=== PATIENT | male | born 1955 | race Caucasian/White ===

== ENCOUNTER 2016-09-09 21:37 | Emergency (ER) | payer BC, OTHER ==
[2016-09-09] VITALS (12 sets, daily range): BP systolic 71–150; BP diastolic 45–82; PULSE 63–76; RESP 18–20; TEMP 97.4–97.5; O2SAT 93–98
[~2016-09-09] VITALS: Ht 193 cm; Wt 109.0 kg
[~2016-09-09 21:37] MED LIST: PRED50TA PO; RANI150 PO
[2016-09-09] MEDS ORDERED: SODIUM CHLOR 0.9% 1000 ML INJ 1,000 ML IV SCH (21:49)
--- NOTE | 2016-09-09 21:50 | PD ---
HPI Chief Complaint: Allergic/Adverse Reaction Time Seen by Provider: 21:49 Travel History International Travel<30 days: No Contact w/Intl Traveler<30days: No Traveled to known affect area: No History of Present Illness HPI 60 year-old male presents to the emergency department by private transportation for acute allergic reaction. Patient with urticarial reaction sudden onset around 9 PM without known precipitating factor. Patient's had allergic reactions in the past of unclear etiology. Patient did take Zantac prior to arrival to the emergency department. Patient states that he was working in the yard around 4 PM this evening cleaning foliage/night daniel does not recall any type of insect bite. Subsequently he went to exercise at his gym and then went to visit his father's home. Patient last ate around 5:30 hamburger from [employer]. Patient did take an aspirin around 4 PM after working in the yard. Patient denies any new medications detergents lotions linens chemicals clothing foods or environments. Patient does complain of pruritus and diffuse urticarial rash has sensation of some swelling or itching of the right upper lip but no visible swelling is noted. Patient fells somewhat tight in the throat and slightly short of breath. No near-syncope or syncope. No nausea or vomiting abdominal cramping or diarrhea. Patient denies any chronic medical conditions such as CAD, hypertension, dyslipidemia, diabetes, tobaccoism, or asthma. Pain is 0/10. PFSH Past Medical History Narrative Medical Idiopathic urticaria, psoriasis, toe surgery, no tobacco use, nursing notes reviewed Diminished Hearing: No Social History Alcohol Use: No Tobacco Use: No Substance Use: No Allergies-Medications (Allergen,Severity, Reaction): Coded Allergies: No Known Allergies (Verified , 09/09/16) Reported Meds & Prescriptions Reported Meds & Active Scripts Active Reported Benadryl Allergy (Diphenhydramine HCl) 25 Mg Tab 25 Mg PO Q6H PRN Ranitidine (Ranitidine HCl) 150 Mg Tab 150 Mg PO DAILY PRN Narrative Medication Epi Pen Review of Systems Except as stated in HPI: all other systems reviewed are Neg Physical Exam Narrative GENERAL: Well-developed well-nourished male in obvious discomfort and mild distress with diffuse urticarial rash; triage blood pressure: 71/45 SKIN: Warm and dry. Diffuse urticarial rash. HEAD: Normocephalic. EYES: No scleral icterus. No injection or drainage. ENT: Mucous membranes moist airway is patent, no angioedema noted NECK: Supple, trachea midline. No JVD or lymphadenopathy. CARDIOVASCULAR: Regular rate and rhythm without murmurs, gallops, or rubs. RESPIRATORY: Breath sounds equal bilaterally. No accessory muscle use. GASTROINTESTINAL: Abdomen soft, non-tender, nondistended. MUSCULOSKELETAL: No cyanosis, or edema. BACK: Nontender without obvious deformity. No CVA tenderness. Data Data Last Documented VS Vital Signs Date Time Temp Pulse Resp B/P Pulse Ox O2 Delivery O2 Flow Rate FiO2 09/09/16 23:00 97.5 70 20 120/74 96 Nasal Cannula 1 Orders Basic Metabolic Panel (Bmp) (09/09/16 21:49) Complete Blood Count With Diff (09/09/16 21:49) Ecg Monitoring (09/09/16 21:49) Iv Access Insert/Monitor (09/09/16 21:49) Oximetry (09/09/16 21:49) Diphenhydramine Inj (Benadryl Inj) (09/09/16 22:00) Methylprednisolone So Succ Inj (Solumedr (09/09/16 22:00) Famotidine Inj (Pepcid Inj) (09/09/16 22:00) Sodium Chlor 0.9% 1000 Ml Inj (Ns 1000 M (09/09/16 21:49) Sodium Chloride 0.9% Flush (Ns Flush) (09/09/16 22:00) Epinephrine (1:1000) Inj (Adrenalin (1:1 (09/09/16 22:00) Electrocardiogram (09/09/16 ) Sodium Chlor 0.9% 1000 Ml Inj (Ns 1000 M (09/09/16 22:00) Methylprednisolone So Succ Inj (Solumedr (09/09/16 22:00) Potassium Chloride (Kcl) (09/09/16 22:30) Magnesium (Mg) (09/09/16 21:51) Troponin I (09/09/16 21:51) Labs Laboratory Tests Test 09/09/16 21:51 White Blood Count 8.0 TH/MM3 Red Blood Count 6.09 MIL/MM3 Hemoglobin 17.5 GM/DL Hematocrit 53.3 % Mean Corpuscular Volume 87.6 FL Mean Corpuscular Hemoglobin 28.8 PG Mean Corpuscular Hemoglobin 32.9 % Concent Red Cell Distribution Width 12.8 % Platelet Count 360 TH/MM3 Mean Platelet Volume 7.6 FL Neutrophils (%) (Auto) 55.4 % Lymphocytes (%) (Auto) 37.4 % Monocytes (%) (Auto) 4.2 % Eosinophils (%) (Auto) 2.2 % Basophils (%) (Auto) 0.8 % Neutrophils # (Auto) 4.4 TH/MM3 Lymphocytes # (Auto) 3.0 TH/MM3 Monocytes # (Auto) 0.3 TH/MM3 Eosinophils # (Auto) 0.2 TH/MM3 Basophils # (Auto) 0.1 TH/MM3 CBC Comment DIFF FINAL Differential Comment Sodium Level 145 MEQ/L Potassium Level 3.4 MEQ/L Chloride Level 109 MEQ/L Carbon Dioxide Level 28.5 MEQ/L Anion Gap 8 MEQ/L Blood Urea Nitrogen 22 MG/DL Creatinine 1.10 MG/DL Estimat Glomerular Filtration 69 ML/MIN Rate Random Glucose 131 MG/DL Calcium Level 8.7 MG/DL Magnesium Level 2.4 MG/DL Troponin I LESS THAN 0.02 NG/ML MDM Medical Decision Making Medical Screen Exam Complete: Yes Emergency Medical Condition: Yes Medical Record Reviewed: Yes Interpretation(s) CBC is automated differential: Values in normal range Metabolic panel: Values in normal range except for mild hypokalemia Troponin I: Less than 0.02, not elevated EKG: sinus rhythm no acute ST elevation injury pattern or ectopy noted Differential Diagnosis Acute allergic reaction, idiopathic urticaria, anaphylaxis, angioedema Narrative Course Patient immediately placed on hypoid gear tester IV access obtained specimens collected patient administered epinephrine 1 1000 concentration 0.3 cc IM as well as Benadryl 25 mg IV ( Benadryl 50 mg ordered however patient had artery taken Benadryl 50 mg prior to arrival to the emergency department by mouth) patient administered Solu-Medrol 155 mg IV and Pepcid 40 mg IV (reportedly takes Zantac 150 mg by mouth prior to arrival to the emergency department) @ 23:40 patient is improved after iv fluids, im epinephrine, iv benadryl iv pepcid and oral replacement potassium; EKG sinus rhythm without injury or ischemia or ectopy changes; hypoid gear tester with intermittent PAC's. Urticaria almost completely resolved some mild residual pink erythema at the waistline. No lip tongue or throat swelling lung sounds are clear vital signs are in normal range. Patient reports mild drowsiness associated with receiving IV Benadryl as he states he is frequently drowsy after receiving or taking Benadryl. At 12:35 AM patient desirous of being discharged to home has EpiPen prescription Zantac prescription and Benadryl. Patient is aware of risk benefit of being monitored overnight versus continuing education regimen at home. Patient is desirous of being discharged home appears stable at this time encouraged to continue Benadryl milligrams every 4 hours as well as Zantac 300 mg daily and to carry EpiPen at all times and should he have any recurrent symptoms or any lip tongue or throat symptoms uses EpiPen return to the emergency department patient is also encouraged to complete course of steroid and to follow-up this primary care provider in the a.m. Prior to discharge patient given oral dose of Benadryl as well as prednisone. Diagnosis Primary Impression: Allergic reaction, urticaria Referrals: Adi Hernadez DO 1 day Patient Instructions: General Instructions Additional Instructions: Increase fluid hydration Take Benadryl 25 mg 1-2 tablets every 4-6 hours for rash and itching 5 days Takes Zantac 150 mg 2 tablets daily 5 days Complete course of steroid as prescribed Avoid overheating No work times one day Follow-up with primary care provider in office times one day call office in a.m. Return immediately to the emergency room for any concerns or change in condition Carry EpiPen at all times and administer medication for hives and acute allergic reaction at time of onset of symptoms and proceed to the nearest hospital/emergency department Med/Other Pt SpecificInfo: Prescription(s) given Scripts Ranitidine (Zantac)300 Mg Dak026 Mg PO DAILY 5 Days Ref 0 Prov:Kaylyn Archibald MD 09/10/16 Prednisone 50 Mg Tab50 Mg PO DAILY 4 Days Ref 0 Prov:Kaylyn Archibald MD 09/10/16 Epinephrine Inj (Epipen 2-Gage Inj)0.3 Mg/0.3 Ml Pfpen0.3 Mg IM ONCE PRN ( ALLERGIC REACTION) #1 PACK Ref 2 Prov:Kaylyn Archibald MD 09/10/16 Disposition: 01 DISCHARGE HOME Condition: Stable Kaylyn Archibald MD Sep 09, 2016 21:50
[2016-09-09 22:00] LABS: AUTOMATED NEUTROPHIL # 4.4 TH/MM3 (1.8-7.7); BASOPHIL # 0.1 TH/MM3 (0-0.2); BASOPHIL % 0.8 % (0.0-2.0); EOSINOPHIL # 0.2 TH/MM3 (0-0.4); EOSINOPHIL % 2.2 % (0.0-4.0); HEMATOCRIT 53.3 % (39.0-51.0); HEMO FLAGS DIFF FINAL; LYMPH % 37.4 % (9.0-44.0); MEAN CELL VOLUME 87.6 FL (80.0-100.0); MEAN CORPUSCULAR HEMOGLOBIN 28.8 PG (27.0-34.0); MEAN CORPUSCULAR HGB CONC 32.9 % (32.0-36.0); MONO % 4.2 % (0.0-8.0); NEUT % 55.4 % (16.0-70.0); PLATELET COUNT 360 TH/MM3 (150-450); RED BLOOD COUNT 6.09 MIL/MM3 (4.50-5.90); RED CELL DISTRIBUTION WIDTH 12.8 % (11.6-17.2)
[2016-09-09] MEDS ORDERED: FAMOTIDINE 20 MG/2 ML VIAL IV PUSH ONE (22:00)
[2016-09-09] MEDS ORDERED: methylPREDNISolone SOD SUCC 125 MG/2 ML VIAL IM ONE (22:00)
[2016-09-09] MEDS ORDERED: diphenhydrAMINE HCL 50 MG/ML VIAL IVP ONE (22:00)
[2016-09-09] MEDS ORDERED: methylPREDNISolone SOD SUCC 125 MG/2 ML VIAL IV PUSH ONE (22:00)
[2016-09-09] MEDS ORDERED: SODIUM CHLOR 0.9% 1000 ML INJ 1,000 ML IV ONE (22:00)
[2016-09-09] MEDS ORDERED: SODIUM CHLORIDE 0.9% FLUSH 5 ML FLUSH IVF PRN (22:00)
[2016-09-09] MEDS ORDERED: EPINEPHrine HCL (1:1000) 1 MG/ML VIAL IM ONE (22:00)
[2016-09-09 22:08] LABS: CHLORIDE 109 MEQ/L (98-107); POTASSIUM 3.4 MEQ/L (3.5-5.1); SODIUM (NA) 145 MEQ/L (136-145)
[2016-09-09 22:11] LABS: ANION GAP 8 MEQ/L (5-15); BICARBONATE 28.5 MEQ/L (21.0-32.0); BLOOD UREA NITROGEN 22 MG/DL (7-18)
[2016-09-09 22:14] LABS: GLOMERULAR FILTRATION RATE 69 ML/MIN (>89)
[2016-09-09] MEDS ORDERED: RANI150T PO (22:24)
[2016-09-09] MEDS ORDERED: BENA25TA3 PO (22:24)
[2016-09-09] MEDS ORDERED: POTASSIUM CHLORIDE 20 MEQ CONTROLLED RELEASE TAB PO ONE (22:30)
[2016-09-09 22:38] LABS: MAGNESIUM 2.4 MG/DL (1.5-2.5)
[2016-09-10 00:15] VITALS: BP 131/72; PULSE 72; RESP 18; O2SAT 95
[2016-09-10 00:28] VITALS: BP_SYST 110; BP_SYST 130; BP_DIAS 71; BP_DIAS 73; RESP 18
[2016-09-10] MEDS ORDERED: EPIP0.3I IM (00:39)
[2016-09-10] MEDS ORDERED: ZANT300T PO (00:39)
[2016-09-10] MEDS ORDERED: PRED50 PO (00:39)
[2016-09-10] MEDS ORDERED: diphenhydrAMINE HCL 25 MG CAP PO ONE (00:45)
[2016-09-10] MEDS ORDERED: predniSONE 50 MG TAB PO ONE (00:45)
[2016-09-10 01:00] VITALS: BP 128/79; PULSE 68; RESP 18; TEMP 97.6; O2SAT 95
--- NOTE | 2016-09-10 15:02 | EKG ---
Date Performed: 09/09/2016 Time Performed: 22:07:06 PTAGE: 60 years EKG: BASELINE ARTIFACT PRESENT. Sinus rhythm Normal ECG COMPARED TO PRIOR ELECTROCARDIOGRAM, T wave changes have improved. PREVIOUS TRACING : 02/02/2006 13.55 DOCTOR: Manpreet Kendall Interpretating Date/Time 09/10/2016 15:01:41
== END 2016-09-10 01:26 | disposition home or self-care (01) ==
LOC: PHED 21:37
DX: T78.40XA Allergy, unspecified, initial encounter (principal); L50.9 Urticaria, unspecified
CPT/HCPCS: 80048; 83735; 84484; 85025; 93005; 96361; 96372; 96374; 96375; 99284; J0171; J1200; J2930; J7030; J7512